=== PATIENT | male | born 1995 | race Two or more races ===

== ENCOUNTER → 2024-03-26 | Outpatient (CLI) | payer OTHER, SELFPAY ==
--- NOTE | 2024-03-26 15:02 | XR_ITS ---
Examination: Wrist, right 3 views Technique: Wrist AP, oblique, lateral 3 views Date and time of exam: March 26, 2024 1536 hours INDICATIONS: Right wrist pain after injury 2023. FINDINGS: Normal bone density. No fracture or dislocation. No significant arthritic change IMPRESSION: No fracture or dislocation
--- NOTE | 2024-03-26 15:02 | XR_ITS ---
Examination: Hand, right 3 views Technique: Hand AP, oblique, lateral 3 views Date and time of exam: March 26, 2024 1536 hours INDICATIONS: Injury to the hand January 2024 with persistent pain FINDINGS: Adequate bone density. No fracture or dislocation No arthritic change No opaque foreign body IMPRESSION: No acute fracture No arthritic change
== END | disposition home or self-care (01) ==
LOC: CDIM 14:57
PROVIDERS: PCP Family Medicine
DX: S69.91XA Unspecified injury of right wrist, hand and finger(s), initial encounter (principal); X58.XXXA Exposure to other specified factors, initial encounter
CPT/HCPCS: 73110; 73130

== ENCOUNTER → 2025-01-04 | Outpatient (CLI) | payer OTHER, SELFPAY ==
--- NOTE | 2025-01-04 16:31 | XR_ITS ---
EXAMINATION: Testicular sonography complete TECHNIQUE: Grayscale sonographic images testes, assessment arterial inflow and venous outflow Doppler spectral analysis color flow analysis Date and time: January 04, 2025, 1641 hours INDICATIONS: Right testicular pain beginning 3 weeks ago lump on the right testicle noted beginning 1 week ago FINDINGS: Right testis 4.0 cm epididymis 11 mm Arterial flow to the testicle. No testicular mass Mild hydrocele Left testis 4.4 cm epididymis 12 mm Arterial flow the testicle. No testicular mass Mild left hydrocele Bilateral heterogeneous epididymis IMPRESSION: Bilateral epididymitis
== END | disposition home or self-care (01) ==
PROVIDERS: PCP Registered Nurse; Referring Provider Registered Nurse; Visit Provider Registered Nurse
DX: N45.1 Epididymitis (principal)
CPT/HCPCS: 76870